=== PATIENT | female | born 1970 | race Hispanic/Latino ===

== ENCOUNTER → 2020-04-03 10:42 | Outpatient (CLI) | payer SELFPAY ==
--- NOTE | 2020-04-03 | DI.US.S_ITS ---
PROCEDURE: US ABDOMEN LIMITED INDICATIONS: ABDOMINAL PAIN - RIGHT UPPER QUADRANT TECHNIQUE: Real-time focused scanning was performed of the abdomen, with image documentation. COMPARISON: None. FINDINGS: The liver demonstrates mildly enlarged size. The liver demonstrates generalized moderately increased echogenicity. This decreases ultrasound sensitivity for detection of hepatic masses. The patient is not NPO and the gallbladder is partially contracted at the time of the study, which limits evaluation. No findings of gallstones or sludge are seen. The gallbladder wall is not thickened, measuring 3 mm or less. No specific pericholecystic fluid is seen. The sonographic Ronquillo sign is negative. There is no biliary dilatation, the common bile duct measures 2 mm. No significant pancreatic abnormality is seen on these images. However, the kidney is overall not well seen. No right upper quadrant free fluid can be seen. IMPRESSION: The gallbladder demonstrates a normal sonographic appearance. No biliary dilatation is seen. Mildly enlarged, fatty liver. Dictated by: Yazan Quesada M.D. on 04/03/2020 at 11:02 Approved by: Yazan Quesada M.D. on 04/03/2020 at 11:04
== END ==
PROVIDERS: Referring Provider Family Medicine; Visit Provider Family Medicine
DX: N92.4 Excessive bleeding in the premenopausal period (principal); R10.11 Right upper quadrant pain; K76.0 Fatty (change of) liver, not elsewhere classified
CPT/HCPCS: 76705

== ENCOUNTER → 2020-04-05 09:38 | Outpatient (CLI) | payer SELFPAY ==
--- NOTE | 2020-04-05 | DI.US.S_ITS ---
PROCEDURE: US PELVIC COMPLETE INDICATIONS: Excessive bleeding in the premenopausal period TECHNIQUE: Real-time scanning was performed of the pelvic organs, with image documentation. Only transabdominal scanning was performed. COMPARISON: None. FINDINGS: Transabdominal scanning: Limited scanning through the kidneys shows no hydronephrosis. No pathologic free abdominal or pelvic fluid. Endovaginal scanning: Uterus: The uterus is enlarged at 13.2 x 9.6 x 7 cm. The endometrial stripe is abnormally thickened in this postmenopausal patient at 9.4 mm. Numerous uterine fibroids are seen, with the largest 3 measuring as follows: Right mid uterus, subserosal, 5.9 x 6.3 x 5.9 cm Right posterior uterus, subserosal, 5.2 x 4.8 x 3.9 cm Mid anterior uterus, intramural, 4.2 x 3.1 x 2.5 cm. Ovaries: Neither ovary is well seen. Within the left adnexal region, there is a complex mass with cystic components with septations with increased vascularity that measures 10.5 x 9.9 x 11.1 cm. IMPRESSION: The endometrial stripe is thickened in this patient with a given history of postmenopausal bleeding. Differential diagnosis includes endometrial neoplasm and endometrial hyperplasia. Recommend correlation with endometrial histology, as clinically appropriate. There is also a left adnexal mass seen, with septated cystic components. Differential diagnosis includes an exophytic fibroid versus ovarian mass. Prominent uterine fibroids are seen. A gynecology consultation is recommended. Dictated by: Yazan Quesada M.D. on 04/05/2020 at 11:50 Approved by: Yazan Quesada M.D. on 04/05/2020 at 11:55
== END ==
PROVIDERS: PCP Family Medicine; Referring Provider Family Medicine; Visit Provider Family Medicine
DX: N92.4 Excessive bleeding in the premenopausal period (principal); D25.1 Intramural leiomyoma of uterus; D25.2 Subserosal leiomyoma of uterus; R93.89 Abnormal findings on diagnostic imaging of other specified body structures; R19.09 Other intra-abdominal and pelvic swelling, mass and lump
CPT/HCPCS: 76856

== ENCOUNTER → 2020-04-16 14:13 | Outpatient (CLI) | payer SELFPAY ==
--- NOTE | 2020-04-16 | DI.MRI.S_ITS ---
PROCEDURE: MR PELVIS WO/W CON INDICATIONS: ADNEXAL MASS TECHNIQUE: Coronal HASTE, sagittal breath-hold T2 FSE; axial T1 FSE with and without fat saturation through the pelvis. Optional long- and short-axis uterine nonbreath-hold T2 FSE through the uterus. Sagittal or axial dynamic VIBE during administration of contrast. Post-contrast axial or coronal VIBE/2-D FLASH with fat saturation from the iliac crests to the symphysis. Optional diffusion weighted imaging and ADC may be performed. COMPARISON: [facility], US, US PELVIC COMPLETE, 04/05/2020, 10:03. FINDINGS: Image quality: Excellent. Uterus: The uterus is anteverted and enlarged. There are several moderate to large uterine fibroids. The largest is a heterogeneous enhancing subserosal right fundal fibroid measuring about 6.7 cm, the next largest is a hyperintense, diffusely enhancing subserosal/pedunculated fibroid arising from the posterior right lower uterine segment measuring about 6.3 cm, and there are several, at least four myometrial hypointense masses within the anterior and left uterine fundus. The endometrial stripe in the lower uterine segment is distended with mildly heterogeneous, slightly T2 hyperintense material causing the diameter of the lower uterine segment to be 2.1 cm this extends for a length of nearly 4 cm. There is minimal enhancement in this region Adnexa: Filling the left adnexa and extending cranially out of the pelvis, there is a large solid and multi cystic mass measuring at least 14.5 x 12.2 x 13.0 cm. There is a possible connection to the left aspect of the uterus, however neither ovary is not discretely identified as a separate structure and this may be ovarian in origin. Urinary system: Bladder wall is normal in thickness. Distal ureters are non distended. Urethra appears normal in morphology. Nodes and vessels: No pelvic or inguinal adenopathy by size criteria. I there are prominent branches of the internal iliac arteries, particularly on the right. Gonadal veins are not discretely identified on the left, and appear prominent on the right. Bowel and peritoneum: No pathologic free pelvic fluid. Inferior colon and small bowel loops are normal in caliber. Soft tissues: No inguinal hernias. No findings of pelvic floor incompetence in the absence of provocation. Bones: Marrow demonstrates normal overall signal. IMPRESSION: 1. Slightly enhancing, expansile material in the lower uterine segment endometrium. Differential diagnosis includes polyp, hemorrhagic material, and malignancy. Transvaginal ultrasound imaging and/or tissue acquisition is recommended. 2. Large cystic and solid complex left ovarian mass measuring at least 14.5 cm whose origin is still unclear. Differential diagnosis includes complex pedunculated fibroid and ovarian neoplasm. Consider surgical excision due to size, possible malignancy, and risk of torsion. 3. Enlarged uterus with multiple large subserosal and myometrial fibroids. 4. Nonvisualization of the right ovary. Dictated by: Nikky Perez M.D. on 04/16/2020 at 17:35 Approved by: Nikky Perez M.D. on 04/16/2020 at 18:09
== END ==
PROVIDERS: PCP Family Medicine; Referring Provider Obstetrics & Gynecology; Visit Provider Obstetrics & Gynecology
DX: R19.09 Other intra-abdominal and pelvic swelling, mass and lump (principal); N85.2 Hypertrophy of uterus; D25.2 Subserosal leiomyoma of uterus; D25.9 Leiomyoma of uterus, unspecified; N83.9 Noninflammatory disorder of ovary, fallopian tube and broad ligament, unspecified
CPT/HCPCS: 72197; A9579